=== PATIENT | female | born 1970 | race African-American/Black ===

== ENCOUNTER 2022-03-31 17:55 | Emergency (ER) | payer MEDICAID ==
[~2022-03-31] VITALS: Ht 170.2 cm; Wt 72.0 kg
[~2022-03-31 17:55] MED LIST: AMOX-424 PO; FERR-43 PO
[2022-03-31 18:03] VITALS: BP 140/87
== END 2022-03-31 22:17 | disposition home or self-care (01) ==
LOC: ER 17:55
DX: R06.00 Dyspnea, unspecified (principal); D64.9 Anemia, unspecified; M19.90 Unspecified osteoarthritis, unspecified site; Z88.3 Allergy status to other anti-infective agents
CPT/HCPCS: 71045; 99283